=== PATIENT | female | born 1955 | race Caucasian/White ===

== ENCOUNTER 2016-05-01 12:54 | Outpatient (CLI) | payer OTHER | END 2016-05-01 12:55 | disposition home or self-care (01) | LOC: NC 12:54 | PROVIDERS: ATTEND Family Medicine | DX: E11.9 Type 2 diabetes mellitus without complications (principal); Z71.3 Dietary counseling and surveillance; Z68.41 Body mass index [BMI] 40.0-44.9, adult ==

== ENCOUNTER 2016-06-19 13:51 | Outpatient (CLI) | payer OTHER | END 2016-06-19 13:52 | disposition home or self-care (01) | LOC: NC 13:51 | PROVIDERS: ATTEND Family Medicine | DX: E11.9 Type 2 diabetes mellitus without complications (principal); Z71.3 Dietary counseling and surveillance ==